=== PATIENT | male | born 1950 | race Caucasian/White ===

== ENCOUNTER 2024-08-20 14:15 | Inpatient (IN) | payer MEDICARE, OTHER ==
[~2024-08-20] VITALS: Ht 172.7 cm; Wt 72.6 kg
[~2024-08-20 14:15] MED LIST: FOLIC ACID1 MG PO; MILK THISTLE140 M1; MULTI-VITAMIN1 EACH; NORCO 10-325 T1 EACH PO; OMEGA 3 FISH O1 EACH; PROMETHAZINE HC25 M1 PO; ST. JOHN'S WOR150 MG; STOOL SOFTENER1 EAC2; VITAMIN B-121000 MCG PO; VITAMIN C100 MG; VITAMIN D1000 UNI1 PO; [UNRECOGNIZED DRUG - OTHER]
[2024-08-20 15:20] VITALS: TEMP 97.4
[2024-08-20] MEDS ORDERED: IOPAMIDOL 370 MG/ML 100 ML INFUS..BTL INJ ONE (15:48)
[2024-08-20 16:10] LABS: BASOPHILS % 0.3 % (0.0-1.0); EOSINOPHILS # (AUTO) 0.2 (0.0-0.4); EOSINOPHILS % 1.7 % (0.0-6.0); HEMOGLOBIN 12.3 g/dL (14.0-18.0); LYMPHOCYTES # (AUTO) 1.7 (1.0-3.2); MEAN CORPUSCULAR HGB CONC 32.4 g/dL (31-35); MEAN CORPUSCULAR VOLUME 95.7 fL (81-99); MONOCYTES # (AUTO) 0.8 (0.2-0.8); MONOCYTES % 6.5 % (4.4-11.3); NEUTROPHILS # (AUTO) 9.2 (2.1-6.9); NEUTROPHILS % 77.1 % (38.7-80.0); PLATELET COUNT 266 x10e3/uL (140-360); RED BLOOD COUNT 3.97 x10e6/uL (4.3-5.7); RED CELL DISTRIBUTION WIDTH 12.2 % (11.7-14.4); WHITE BLOOD COUNT 11.99 x10e3/uL (4.8-10.8)
[2024-08-20] MEDS: SODIUM CHLORIDE 0.9% 1000ML 1,000 ML IV STA (16:19)
[2024-08-20 16:21] LABS: INR 1.04; PARTIAL THROMBOPLASTIN TIME 30.6 seconds (23.8-35.5); PROTHROMBIN TIME 14.1 seconds (11.9-14.5)
[2024-08-20 16:56] LABS: ALBUMIN 3.2 g/dL (3.5-5.0); ALBUMIN/GLOBULIN RATIO 0.9 (0.8-2.0); ANION GAP 14.9 mmol/L (8-16); BILIRUBIN,TOTAL 0.5 mg/dL (0.2-1.2); CALCIUM 9.7 mg/dL (8.4-10.2); CREATININE, SERUM 0.93 mg/dL (0.72-1.25); MAGNESIUM 1.9 MG/DL (1.3-2.1); POTASSIUM 3.9 mmol/L (3.5-5.1); TOTAL PROTEIN 6.7 g/dL (6.5-8.1)
[2024-08-20] MEDS: Vancomycin IV 1 GM in SODIUM CHLORIDE 0.9% 250ML 250 ML IV ONE (17:05)
[2024-08-20] MEDS ORDERED: ONDANSETRON HCL INJ 2MG/ML 2ML 2 MG/ML VIAL IV PRN (19:00)
[2024-08-20 19:38] VITALS: PULSE 91; RESP 17
[2024-08-20] MEDS ORDERED: FLOMAX0.4 MG PO (20:53)
[2024-08-20 20:55] VITALS: BP 141/79; PULSE 97; RESP 18; TEMP 97.5; O2SAT 100
[2024-08-20] MEDS: SODIUM CHLORIDE 0.9% 1000ML 1,000 ML IV SCH (21:40)
[2024-08-20 22:00] VITALS: BP 141/79; PULSE 97; RESP 18; TEMP 97.5; O2SAT 100
[2024-08-20 22:11] VITALS: BP 141/79; PULSE 97; RESP 18; TEMP 97.5; O2SAT 100
[2024-08-20] MEDS ORDERED: INFLUENZA VIRUS VAC SPLIT INJ 0.5 ML SYR IM SCH (22:55)
[2024-08-20] MEDS ORDERED: PNEUMOCOCCAL VACCINE POLYVALENT 23 MCG/0.5 ML VIAL IM SCH (22:55)
[2024-08-21] VITALS (7 sets, daily range): BP systolic 91–117; BP diastolic 63–78; PULSE 82–98; RESP 16–18; TEMP 97.3–98; O2SAT 96–99
[2024-08-21] MEDS ORDERED: LABETALOL HCL 5 MG/ML 20ML VIAL IV PRN (00:30)
[2024-08-21] MEDS ORDERED: POLYETHYLENE GLYCOL 3350 17 GM PACK PO PRN (00:30)
[2024-08-21] MEDS ORDERED: PROMETHAZINE HCL 25 MG TAB PO PRN (00:45)
[2024-08-21] MEDS ORDERED: HYDROCODONE/APAP 10MG-325MG TAB PO PRN (00:45)
[2024-08-21] MEDS: Vancomycin IV 1 GM in SODIUM CHLORIDE 0.9% 250ML 250 ML IV SCH (04:59)
[2024-08-21 06:05] LABS: BASOPHILS # (AUTO) 0.1 (0.0-0.1); BASOPHILS % 0.4 % (0.0-1.0); EOSINOPHILS # (AUTO) 0.3 (0.0-0.4); EOSINOPHILS % 2.5 % (0.0-6.0); HEMATOCRIT 34.8 % (38.2-49.6); HEMOGLOBIN 11.2 g/dL (14.0-18.0); LYMPHOCYTES # (AUTO) 1.2 (1.0-3.2); LYMPHOCYTES % 10.7 % (18.0-39.1); MEAN CORPUSCULAR HEMOGLOBIN 30.9 pg (28-32); MEAN CORPUSCULAR HGB CONC 32.2 g/dL (31-35); MEAN CORPUSCULAR VOLUME 95.9 fL (81-99); MONOCYTES # (AUTO) 0.8 (0.2-0.8); MONOCYTES % 6.5 % (4.4-11.3); NEUTROPHILS # (AUTO) 9.2 (2.1-6.9); NEUTROPHILS % 79.6 % (38.7-80.0); PLATELET COUNT 262 x10e3/uL (140-360); RED BLOOD COUNT 3.63 x10e6/uL (4.3-5.7); RED CELL DISTRIBUTION WIDTH 12.2 % (11.7-14.4); WHITE BLOOD COUNT 11.54 x10e3/uL (4.8-10.8)
[2024-08-21 06:27] LABS: ALBUMIN 2.9 g/dL (3.5-5.0); ALBUMIN/GLOBULIN RATIO 0.9 (0.8-2.0); ANION GAP 14.7 mmol/L (8-16); BILIRUBIN,TOTAL 0.6 mg/dL (0.2-1.2); CALCIUM 9.1 mg/dL (8.4-10.2); CREATININE, SERUM 0.85 mg/dL (0.72-1.25); POTASSIUM 3.7 mmol/L (3.5-5.1)
[2024-08-21 06:49] LABS: CHOL/HDL RATIO 3.4 (3.9-4.7); PHOSPHORUS 3.2 MG/DL (2.3-4.7)
[2024-08-21 07:16] LABS: FREE T4 (FREE THYROXINE) 0.96 ng/dL (0.8-1.8); THYROID STIMULATING HORMONE 1.918 uIU/mL (0.350-4.940)
[2024-08-21] MEDS: DOCUSATE SODIUM 100 MG CAP PO SCH (10:30)
[2024-08-21] MEDS: FAMOTIDINE 20 MG TAB PO SCH (10:30)
[2024-08-21] MEDS ORDERED: ONDANSETRON HCL INJ 2MG/ML 2ML 2 MG/ML VIAL ONE (12:54)
[2024-08-21] MEDS ORDERED: PROPOFOL IV EMULSION 10 MG/ML 20 ML VIAL ONE (12:54)
[2024-08-21] MEDS ORDERED: LIDOCAINE HCL 2% LOCAL INJ 5 ML SDV VIAL INJ ONE (12:54)
[2024-08-21] MEDS ORDERED: ACETAMINOPHEN 1000 MG/100 ML IV ONE (12:54)
[2024-08-21] MEDS ORDERED: SEVOFLURANE INHAL SOLN 250 ML PEN BTL ONE (12:54)
[2024-08-21] MEDS ORDERED: FENTANYL CITRATE/PF 100MCG/2 ML INJ ONE (13:10)
[2024-08-21] MEDS: ONDANSETRON HCL INJ 2MG/ML 2ML 2 MG/ML VIAL ONE (13:54)
[2024-08-21] MEDS: ACETAMINOPHEN 325 MG TAB PO PRN (22:02)
[2024-08-22] VITALS (8 sets, daily range): BP systolic 99–126; BP diastolic 65–90; PULSE 74–89; RESP 16–20; TEMP 97.6–98; O2SAT 98–100
[2024-08-22 06:18] LABS: BASOPHILS % 0.3 % (0.0-1.0); EOSINOPHILS # (AUTO) 0.3 (0.0-0.4); EOSINOPHILS % 2.9 % (0.0-6.0); HEMATOCRIT 29.8 % (38.2-49.6); HEMOGLOBIN 9.6 g/dL (14.0-18.0); LYMPHOCYTES # (AUTO) 0.9 (1.0-3.2); LYMPHOCYTES % 9.4 % (18.0-39.1); MEAN CORPUSCULAR HEMOGLOBIN 31.2 pg (28-32); MEAN CORPUSCULAR HGB CONC 32.2 g/dL (31-35); MEAN CORPUSCULAR VOLUME 96.8 fL (81-99); MONOCYTES # (AUTO) 0.7 (0.2-0.8); MONOCYTES % 7.5 % (4.4-11.3); NEUTROPHILS # (AUTO) 7.4 (2.1-6.9); NEUTROPHILS % 79.6 % (38.7-80.0); PLATELET COUNT 219 x10e3/uL (140-360); RED BLOOD COUNT 3.08 x10e6/uL (4.3-5.7); RED CELL DISTRIBUTION WIDTH 12.5 % (11.7-14.4); WHITE BLOOD COUNT 9.25 x10e3/uL (4.8-10.8)
[2024-08-22 06:46] LABS: ANION GAP 10.6 mmol/L (8-16); CALCIUM 8.4 mg/dL (8.4-10.2); CREATININE, SERUM 0.87 mg/dL (0.72-1.25); POTASSIUM 3.6 mmol/L (3.5-5.1)
[2024-08-23] VITALS: BP 137/86; PULSE 90; RESP 16; TEMP 97.5; O2SAT 98
[2024-08-23 05:49] VITALS: BP 116/60; PULSE 100; RESP 16; TEMP 97.2; O2SAT 99
[2024-08-23 08:29] VITALS: BP 146/84; PULSE 91; RESP 19; TEMP 97.7; O2SAT 100
[2024-08-23 08:45] VITALS: BP 146/84; PULSE 91; RESP 19; TEMP 97.7; O2SAT 100
[2024-08-23 11:04] VITALS: BP 109/79; PULSE 85; RESP 19; TEMP 97.5; O2SAT 98
[2024-08-23] MEDS: NEOMYCIN/POLYMYXIN/BACITRACIN 15 GM TUBE TOP SCH (12:27)
[2024-08-23] MEDS: Morphine 2mg Syringe 2 MG/ML SYR IV PRN (12:32)
[2024-08-23 15:30] VITALS: BP 135/82; PULSE 92; RESP 19; TEMP 97.6; O2SAT 99
[2024-08-23] MEDS ORDERED: AUGMENTIN 500-1 EACH PO (16:55)
== END 2024-08-23 18:08 | disposition home or self-care (01) | DRG 571 ==
LOC: ER 15:35 → ERHOLD 18:56 → MED/SURG2 20:38
PROVIDERS: ADMIT Internal Medicine; ATTEND Internal Medicine
PROC: 0JBC0ZZ Excision of Pelvic Region Subcutaneous Tissue and Fascia, Open Approach (ICD-10-PCS; principal; 2024-08-21 11:32)
DX: L02.214 Cutaneous abscess of groin (principal); Z94.81 Bone marrow transplant status; G62.0 Drug-induced polyneuropathy; N40.0 Benign prostatic hyperplasia without lower urinary tract symptoms; M81.0 Age-related osteoporosis without current pathological fracture; T45.1X5A Adverse effect of antineoplastic and immunosuppressive drugs, initial encounter; Z85.72 Personal history of non-Hodgkin lymphomas; Z92.21 Personal history of antineoplastic chemotherapy; Z92.3 Personal history of irradiation; Z77.29 Contact with and (suspected) exposure to other hazardous substances
CPT/HCPCS: 36415; 74177; 80048; 80053; 80061; 80202; 83036; 83735; 84100; 84439; 84443; 85025; 85610; 85730; 87040; 87071; 87075; 87205; 88304; 88305; 88342; 88365; 99252; 99284; J2003; J2270; J2405; J2543; J7030; J7050; Q9967

== ENCOUNTER 2024-09-01 10:19 | Inpatient (IN) | payer MEDICARE ==
[~2024-09-01] VITALS: Ht 172.7 cm; Wt 72.6 kg
[~2024-09-01 10:19] MED LIST changes: +AUGMENTIN 500-1 EACH PO; +FLOMAX0.4 MG PO
[2024-09-01 11:03] LABS: BASOPHILS # (AUTO) 0.1 (0.0-0.1); BASOPHILS % 0.4 % (0.0-1.0); EOSINOPHILS # (AUTO) 0.1 (0.0-0.4); EOSINOPHILS % 0.9 % (0.0-6.0); HEMATOCRIT 34.4 % (38.2-49.6); HEMOGLOBIN 11.2 g/dL (14.0-18.0); LYMPHOCYTES # (AUTO) 1.2 (1.0-3.2); LYMPHOCYTES % 9.1 % (18.0-39.1); MEAN CORPUSCULAR HEMOGLOBIN 30.5 pg (28-32); MEAN CORPUSCULAR HGB CONC 32.6 g/dL (31-35); MEAN CORPUSCULAR VOLUME 93.7 fL (81-99); MONOCYTES # (AUTO) 0.8 (0.2-0.8); MONOCYTES % 5.9 % (4.4-11.3); NEUTROPHILS # (AUTO) 10.6 (2.1-6.9); NEUTROPHILS % 83.4 % (38.7-80.0); PLATELET COUNT 333 x10e3/uL (140-360); RED BLOOD COUNT 3.67 x10e6/uL (4.3-5.7); RED CELL DISTRIBUTION WIDTH 12.6 % (11.7-14.4); WHITE BLOOD COUNT 12.66 x10e3/uL (4.8-10.8)
[2024-09-01 11:12] LABS: INR 1.1; PROTHROMBIN TIME 14.8 seconds (11.9-14.5)
[2024-09-01 11:13] LABS: PARTIAL THROMBOPLASTIN TIME 29.8 seconds (23.8-35.5)
[2024-09-01] MEDS: Morphine 4mg INJECTION 4 MG/ML INJ IV PRN (11:14)
[2024-09-01] MEDS ORDERED: IOPAMIDOL 370 MG/ML 100 ML INFUS..BTL INJ ONE (11:16)
[2024-09-01 11:20] LABS: ALBUMIN/GLOBULIN RATIO 0.9 (0.8-2.0); ANION GAP 17.9 mmol/L (8-16); BILIRUBIN,TOTAL 0.5 mg/dL (0.2-1.2); CALCIUM 9.4 mg/dL (8.4-10.2); CREATININE, SERUM 0.92 mg/dL (0.72-1.25); POTASSIUM 3.9 mmol/L (3.5-5.1); TOTAL PROTEIN 6.4 g/dL (6.5-8.1)
[2024-09-01 11:25] LABS: TROPONIN I 0.001 ng/mL (0-0.300)
[2024-09-01] MEDS: ONDANSETRON HCL INJ 2MG/ML 2ML 2 MG/ML VIAL IV STA (11:31)
[2024-09-01] MEDS: Morphine 4mg INJECTION 4 MG/ML INJ IV STA (11:32)
[2024-09-01] MEDS: SODIUM CHLORIDE 0.9% 1000ML 1,000 ML IV STA (11:32)
[2024-09-01] MEDS: SODIUM CHLORIDE 0.9% 1000ML 1,000 ML IV SCH (11:33)
[2024-09-01] MEDS: Vancomycin IV 1 GM in SODIUM CHLORIDE 0.9% 250ML 250 ML IV ONE (11:37)
[2024-09-01] MEDS: ONDANSETRON HCL INJ 2MG/ML 2ML 2 MG/ML VIAL IV PRN (18:44)
[2024-09-02] VITALS (7 sets, daily range): BP systolic 104–135; BP diastolic 62–75; PULSE 89–108; RESP 16–20; TEMP 97.7–98.7; O2SAT 95–98
[2024-09-02 04:32] LABS: BASOPHILS # (AUTO) 0.1 (0.0-0.1); BASOPHILS % 0.4 % (0.0-1.0); EOSINOPHILS # (AUTO) 0.1 (0.0-0.4); EOSINOPHILS % 0.6 % (0.0-6.0); HEMATOCRIT 34.8 % (38.2-49.6); HEMOGLOBIN 11.1 g/dL (14.0-18.0); LYMPHOCYTES # (AUTO) 1.3 (1.0-3.2); LYMPHOCYTES % 8.7 % (18.0-39.1); MEAN CORPUSCULAR HEMOGLOBIN 30.7 pg (28-32); MEAN CORPUSCULAR HGB CONC 31.9 g/dL (31-35); MEAN CORPUSCULAR VOLUME 96.4 fL (81-99); MONOCYTES # (AUTO) 0.9 (0.2-0.8); NEUTROPHILS # (AUTO) 12.2 (2.1-6.9); PLATELET COUNT 357 x10e3/uL (140-360); RED BLOOD COUNT 3.61 x10e6/uL (4.3-5.7); RED CELL DISTRIBUTION WIDTH 12.7 % (11.7-14.4); WHITE BLOOD COUNT 14.48 x10e3/uL (4.8-10.8)
[2024-09-02 04:51] LABS: ALBUMIN 2.7 g/dL (3.5-5.0); ALBUMIN/GLOBULIN RATIO 0.7 (0.8-2.0); ANION GAP 16.1 mmol/L (8-16); BILIRUBIN,TOTAL 0.4 mg/dL (0.2-1.2); CALCIUM 8.7 mg/dL (8.4-10.2); CREATININE, SERUM 0.79 mg/dL (0.72-1.25); POTASSIUM 4.1 mmol/L (3.5-5.1); TOTAL PROTEIN 6.5 g/dL (6.5-8.1)
[2024-09-02] MEDS ORDERED: MULTI-VITAMIN1 EACH PO (09:51)
[2024-09-02] MEDS: SODIUM CHLORIDE 0.9% 1000ML 1,000 ML IV SCH (23:12)
[2024-09-03 00:46] VITALS: BP 118/66; PULSE 91; RESP 18; TEMP 97.8; O2SAT 96
[2024-09-03 04:42] VITALS: BP 131/77; PULSE 103; RESP 20; TEMP 98.1; O2SAT 95
== END 2024-09-03 05:04 | disposition left against medical advice (07) | DRG 603 ==
LOC: ER 10:26 → ERHOLD 11:07 → MED/SURG3 09-02 08:51
PROVIDERS: ADMIT Internal Medicine; ATTEND Internal Medicine
DX: L02.214 Cutaneous abscess of groin (principal); E87.1 Hypo-osmolality and hyponatremia; Z94.81 Bone marrow transplant status; N40.0 Benign prostatic hyperplasia without lower urinary tract symptoms; G62.0 Drug-induced polyneuropathy; T45.1X5A Adverse effect of antineoplastic and immunosuppressive drugs, initial encounter; Z85.72 Personal history of non-Hodgkin lymphomas; Z77.098 Contact with and (suspected) exposure to other hazardous, chiefly nonmedicinal, chemicals; M81.0 Age-related osteoporosis without current pathological fracture
CPT/HCPCS: 36415; 74177; 80053; 82550; 83735; 84484; 85025; 85610; 85730; 87040; J2270; J2405; J2543; J7030; J7050; Q9967